=== PATIENT | female | born 1955 | race Asian ===

== ENCOUNTER 2016-12-29 09:11 | Emergency (ER) | payer OTHER ==
[2016-12-29 11:37] VITALS: BP 145/86
== END 2016-12-29 12:20 | disposition home or self-care (01) ==
LOC: ED 09:11
DX: M17.0 Bilateral primary osteoarthritis of knee (principal); F17.200 Nicotine dependence, unspecified, uncomplicated; Z71.6 Tobacco abuse counseling
CPT/HCPCS: 99406; J1885